=== PATIENT | female | born 2000 | race Caucasian/White ===

== ENCOUNTER 2025-05-16 23:45 | Emergency (ER) | payer BC ==
[~2025-05-16] VITALS: Ht 154.9 cm; Wt 42.0 kg
[2025-05-17 00:55] LABS: MEAN PLATELET VOLUME 8.7 FL (7.4-10.4); RED CELL DISTRIBUTION WIDTH 13.3 % (11.5-14.5)
--- NOTE | 2025-05-17 01:02 | Physician Documentation ---
History of Present Illness ~ Chief Complaint: Vaginal Bleeding Stated Complaint: COMPLICATION Time Seen by MD: 01:02 HPI 24-year-old female presenting with vaginal bleeding in the setting of early She tells me that she is approximately 10.5 weeks . She had an ultrasound at 6 weeks that showed a normal and heartbeat. At 8 weeks she had an ultrasound that showed an empty sac. Today she developed lower abdominal cramping and vaginal bleeding. She tells me she is having a lot of bleeding and passing large clots, tells me the clots are his biggest her hand. She has gone through at least 10 pads. Her normal menstrual cycles are very minimal, this is a lot of bleeding for her. She reports feeling tired and lightheaded. No fevers. No other acute symptoms. She tells me her concern is for losing too much blood. Review of Systems Constitutional: Denies: fever Gastrointestinal: Reports: abdominal pain Female Genitalia: Reports: vaginal pain Physical Exam Vital Signs: Temperature: 97.6, Source: Temporal, Heart Rate: 86, Respiratory Rate: 20, BP: 126/94, Pulse Oximetry: 100, Weight: 42.000 Physical Exam General: This is an anxious appearing thin young female, at bedside HEENT: Atraumatic, oropharynx is moist Heart: Regular rate and rhythm, normal-appearing peripheral perfusion Lungs: normal work of breathing, normal oxygen saturation on room air Abdomen: Soft, nondistended, tender to palpation in the lower abdomen, no rebound or guarding Neuro: Alert and oriented Psychiatric: Anxious, intermittently tearful Skin: Does appear pale Progress Results/Orders Results/Orders Orders - TOM PENA MD Straight Cath For Urine Sample (05/17/25 00:08) Cult Urine + [address] (05/17/25 01:24) US OB (05/17/25 ) Completed Orders - TOM PENA MD Hcg, Ur Ql (05/17/25 00:08) Cbc/Diff (05/17/25 00:08) Lipase (05/17/25 00:08) CMP (05/17/25 00:08) Hcg Serum Qt (05/17/25 00:34) Ua W/Microscopic, Cult If Ind (05/17/25 00:50) US OB (05/17/25 ) Vital Signs 05/16/25 05/17/25 05/17/25/14/25 23:48 00:59 01:23 03:39 Temp 97.6 97.6 Pulse 86 86 80 Resp 20 16 16 B/P (MAP) 126/94 94/63 (73) 102/65 Pulse Ox 100 100 98 O2 Flow Rate 0 Laboratory Tests Test 05/17/25 00:45 05/17/25 00:50 White Blood Count 9.3 Red Blood Count 3.94 L Hemoglobin 11.5 L Hematocrit 33.6 L Mean Corpuscular Volume 85.4 Mean Corpuscular Hemoglobin 29.2 Mean Corpuscular Hemoglobin Concent 34.2 Red Cell Distribution Width 13.3 Platelet Count 216 Mean Platelet Volume 8.7 Neutrophils (%) (Auto) 56.3 Lymphocytes (%) (Auto) 35.8 Monocytes (%) (Auto) 7.0 Eosinophils (%) (Auto) 0.7 Basophils (%) (Auto) 0.2 Neutrophils # (Auto) 5.2 Lymphocytes # (Auto) 3.3 Monocytes # (Auto) 0.7 Eosinophils # (Auto) 0.1 Basophils # (Auto) 0.0 CBC Comment Sodium Level 131 L Potassium Level 4.3 Chloride Level 96 L Carbon Dioxide Level 25.7 Anion Gap 9 Blood Urea Nitrogen 5 L Creatinine 0.60 Estimated GFR/1.73 m2 > 90 BUN/Creatinine Ratio 8.3 L Glucose Level 114 H Calcium Level 8.6 Total Bilirubin 0.4 Aspartate Amino Transf (AST/SGOT) 23 Alanine Aminotransferase (ALT/SGPT) 30 Alkaline Phosphatase 74 Total Protein 7.2 Albumin 4.0 Globulin 3.2 Albumin/Globulin Ratio 1.3 Lipase 25 HCG Beta Subunit 47594 Chemistry Comments Urine Specimen Description Cln catch midstream Urine Color Yellow Urine Clarity Clear Urine pH 6.0 Urine Specific [place] <=1.005 Urine Protein 100 H Urine Glucose (UA) Negative Urine Ketones Negative Urine Occult Blood Large H Urine Nitrite Negative Urine Bilirubin Negative Urine Urobilinogen 0.2 Urine Leukocyte Esterase Trace H Urine RBC Tmnt Urine WBC None seen Urine Squamous Epithelial Cells Few Urine Bacteria None seen Urine Culture Indicated Indicated Volume Urine Centrifuged 10 ml Urine HCG, Qualitative Positive Urine Comment Microbiology Date/Time Source Procedure Growth Status 05/17/25 01:24 Urine Clean Catch Midstream Urine Culture - Preliminary Culture received. Resulted EKG/XRAY/CT/US/VASC/MRI Ultrasound : Impression Ultrasound shows fluid in the uterus with possible retained products of conception. Normal ovaries Medical Decision Making Additional Comment The patient presents with a history and exam that are all consistent with a miscarriage. Her laboratory testing does not show dangerous blood loss anemia. Ultrasound shows findings consistent with a miscarriage. She declined an IV, did not want IV fluids or other treatment at this time. Per up-to-date recommendations, she does not require RhoGAM given that she is less than 12 weeks . I did discuss the possible need for a D&C or other intervention if she continues to have significant bleed. We did not have gynecology service at this hospital. I did discuss the possibility for transfer to another hospital with gynecology services if indicated. However, the patient felt comfortable returning home at this time. She will continue to try and complete her miscarriage. If she has worsening symptoms including worsening bleeding, lightheadedness and syncope, she will return to the ER for further evaluation and treatment. Departure Time of Disposition: 03:29 Disposition: 01 HOME / SELF CARE / HOMELESS Impression: Primary Impression: Miscarriage Additional Impression: Vaginal bleeding Condition: Stable Discharge Instructions: Miscarriage Referrals: NO PRIMARY CARE PROVIDER (PCP) Education Educated: Patient, Family Educated regarding: diagnosis, need for follow up Signature Scribe Signature: na Attestation: TOM Pemberton MD May 17, 2025 01:02
[2025-05-17 01:10] LABS: URINE HCG POSITIVE (NEG)
[2025-05-17 01:12] LABS: LEUKOCYTE ESTERASE ,URINE TRACE (Neg); NITRITES, URINE NEGATIVE (Neg); OCCULT BLOOD,URINE LARGE (Neg)
[2025-05-17 01:13] LABS: CREATININE 0.60 MG/DL (0.40-0.90); TOTAL CARBON DIOXIDE 25.7 MMOL/L (24-32); eCRCL 97 ML/MIN; eGFR > 90 ML/MIN
[2025-05-17 01:14] LABS: UA COLLECTION TYPE CLN CATCH MIDSTREAM
[2025-05-17 01:24] LABS: SQUAMOUS EPITHELIAL CELL,UR FEW /LPF (FEW)
--- NOTE | 2025-05-17 03:00 | RADIOLOGY REPORT ---
INDICATION: Bleeding , early TECHNIQUE: Multiple real-time grayscale transabdominal sonographic images along with color and duplex Doppler of the uterus and ovaries were obtained. COMPARISON: None FINDINGS: The uterus measures 9.0 x 4.7 x 4.1 cm. The endometrial stripe measures 0.6 cm. No identifi able intrauterine gestation. Mild focal thickening of the endometrial echo complex near the lower virgen rine segment may represent minimal retained products of conception. No evidence of pelvic cul-de-sac free fluid. Right ovary measures 2.8 x 2.5 x 2.3 cm with normal Doppler color flow. Left ovary measures 2.8 x 2.8 x 1.7 cm with normal Doppler color flow. IMPRESSION: 1. No evidence of intrauterine gestation. Thickened endometrial echo complex more focally within the lower uterine segment may represent residual vascularized retained products of conception. Recommend short-term follow-up evaluation.
[2025-05-17 03:39] VITALS: BP 102/65; PULSE 80; RESP 16; TEMP 97.6; O2SAT 98
== END 2025-05-17 03:42 | disposition home or self-care (01) ==
LOC: ER 23:46
DX: O03.9 Complete or unspecified spontaneous abortion without complication (principal); Z3A.10 10 weeks gestation of pregnancy
CPT/HCPCS: 36415; 76801; 76817; 80053; 81001; 81025; 83690; 84702; 85025; 87088; 93976; 99284